=== PATIENT | female | born 1985 | race Caucasian/White ===

== ENCOUNTER → 2016-10-10 13:42 | Outpatient (CLI) | payer MEDICAID ==
[~2016-10-10 13:42] MED LIST: HYDROCODONE-APA1 TAB PO; NORCO 7.5/325 T1 TA1 PO
[2016-10-17 05:39] VITALS: BMI 35.0
== END | disposition home or self-care (01) ==
LOC: D.MRI 13:42
DX: M25.562 Pain in left knee (principal)

== ENCOUNTER 2016-10-13 19:45 | Emergency (ER) | payer MEDICAID ==
[2016-10-16] MEDS ORDERED: NORCO 7.5/325 T1 TA1 PO (10:44)
[2016-10-17 05:39] VITALS: BMI 35.0
== END 2016-10-13 21:29 | disposition home or self-care (01) ==
LOC: D.ER 19:45
DX: M25.562 Pain in left knee (principal); S83.282A Other tear of lateral meniscus, current injury, left knee, initial encounter; X58.XXXA Exposure to other specified factors, initial encounter; Y93.89 Activity, other specified; Y92.89 Other specified places as the place of occurrence of the external cause; F32.9 Major depressive disorder, single episode, unspecified; F17.200 Nicotine dependence, unspecified, uncomplicated

== ENCOUNTER 2016-10-17 05:00 | Day surgery (SDC) | payer MEDICAID ==
[2016-10-16 11:25] LABS: HEMATOCRIT 40.1 % (36.0-48.0); HEMOGLOBIN 13.2 g/dL (12-16); MCH 28.8 pg (26.0-34.0); MCHC 32.9 g/dL (31.0-37.0); MCV 87.6 fL (80.0-100.0); MEAN PLATELET VOLUME 11.8 fL (7.4-10.4); RBC 4.58 10x6/uL (4.00-5.40); RDW 13.4 % (11.5-14.5); WBC 9.1 10x3/uL (4.8-10.8)
[~2016-10-17] VITALS: Ht 154.9 cm; Wt 83.9 kg
[~2016-10-17 05:00] MED LIST changes: -HYDROCODONE-APA1 TAB PO
[2016-10-17 05:39] VITALS: BP 119/92; Ht 154.9 cm; Wt 83.9 kg
[2016-10-17] MEDS ORDERED: HYDROCODONE-APA1 TAB PO (07:35)
--- NOTE | 2016-10-17 09:25 | NUR ---
IV DC WITH CATHER TIP INTACT
--- NOTE | 2016-10-17 09:32 | NUR ---
CR[facility] TRAINING DONE WAITING ON NEW CRUTCHES
--- NOTE | 2016-10-24 12:19 | OP ---
PATIENT NAME: ANGELES BALLARD MEDICAL RECORD: [id number] :85 LOCATION:D.OPS ADMISSION DATE: SURGEON: KEIRA NÚÑEZ MD DATE OF OPERATION: 10/17/2016 PREOPERATIVE DIAGNOSIS: Left knee lateral meniscus tear. POSTOPERATIVE DIAGNOSES: Left knee chondromalacia grade I-II, specifically patellofemoral joint, no distinct meniscal tear noted. PROCEDURE PERFORMED: Chondroplasty and debridement. SURGEON: Zenon Núñez MD. ANESTHESIA: General. CONDITION: She tolerated the procedure well, was transferred to the recovery room in stable condition. INDICATIONS: This is a 31-year-old female, who has been seeing us in the clinic. She had been having a lateral pain. Her last MRI was consistent with a lateral meniscus tear and she was having pain in this area. We discussed options and elected to proceed with a knee arthroscopy. We discussed risks, benefits, and alternatives. She understood and wished to proceed. OPERATIVE REPORT: The patient was taken to the operating room and placed in supine position. General anesthesia was obtained. Left knee was confirmed to be the correct knee. It was prepped and draped in normal fashion. The portal sites were marked and injected with 0.25% Marcaine with epinephrine. I placed the scope in the anterolateral portal and the outflow superomedially. The knee was then inspected. The patellofemoral joint showed some chondromalacia, some changes on the backside of the patella, but this was not really grade I-II type changes coming down the medial gutter into the medial joint line. Overall, this looked very good. She had some extensive fat pad, which did establish an anterior medial portal under direct visualization and debride some of this from the anterior portion for better visualization. Probing and checking the medial meniscus, I could not find any tears going to the notch, her ACL and PCL were notably intact, flipping into a [id number] position and checked this area thoroughly. She did have some mild chondromalacia and this area was debrided, but I probed the entire lateral meniscus, I could not find any tears anywhere in it, it looked very clean. ____ some debridement with chondroplasty and brought the case to a close. She was injected with Duramorph and awakened and transferred to the recovery room in stable condition, having tolerated the procedure well. TRANSINT:[id number] Voice Confirmation ID: [id number] DOCUMENT ID: [id number] OPERATIVE REPORT [id number] ANGELES BALLARD, KEIRA ALSTON MD at 1219 CC: [id number] DICTATION DATE: 10/17/16 0848 SLOT FLOORMAN: 10/17/[address] [facility] 10/17/16 [place] [id number]
== END 2016-10-17 09:40 | disposition home or self-care (01) ==
LOC: D.OPS 05:00 → D.PAN 07:00 → D.OPS 07:00 → D.PAN 11:00 → D.OPS 11:45 → D.PAN 11:45
PROVIDERS: Anesthesiology
DX: M22.42 Chondromalacia patellae, left knee (principal)

== ENCOUNTER 2016-10-24 22:20 | Emergency (ER) | payer MEDICAID ==
[2016-10-17 05:39] VITALS: BMI 35.0
[~2016-10-24 22:20] MED LIST changes: +HYDROCODONE-APA1 TAB PO
== END 2016-10-25 00:51 | disposition home or self-care (01) ==
LOC: D.ER 22:20
DX: G89.18 Other acute postprocedural pain (principal); M25.562 Pain in left knee; F32.9 Major depressive disorder, single episode, unspecified; F17.200 Nicotine dependence, unspecified, uncomplicated

== ENCOUNTER 2016-12-11 21:41 | Emergency (ER) | payer MEDICAID ==
[2016-10-17 05:39] VITALS: BMI 35.0
== END 2016-12-12 01:00 | disposition home or self-care (01) ==
LOC: D.ER 21:41
DX: S80.02XA Contusion of left knee, initial encounter (principal); W01.0XXA Fall on same level from slipping, tripping and stumbling without subsequent striking against object, initial encounter; Y93.89 Activity, other specified; Y92.89 Other specified places as the place of occurrence of the external cause; F32.9 Major depressive disorder, single episode, unspecified; F17.200 Nicotine dependence, unspecified, uncomplicated

== ENCOUNTER 2016-12-17 21:01 | Emergency (ER) | payer MEDICAID ==
[2016-10-17 05:39] VITALS: BMI 35.0
== END 2016-12-17 22:28 | disposition home or self-care (01) ==
LOC: D.ER 21:01
DX: S61.412A Laceration without foreign body of left hand, initial encounter (principal); W26.0XXA Contact with knife, initial encounter; Y93.89 Activity, other specified; Y92.89 Other specified places as the place of occurrence of the external cause; S69.92XA Unspecified injury of left wrist, hand and finger(s), initial encounter; F32.9 Major depressive disorder, single episode, unspecified; F17.200 Nicotine dependence, unspecified, uncomplicated

== ENCOUNTER 2016-12-18 12:49 | Emergency (ER) | payer MEDICAID ==
[2016-10-17 05:39] VITALS: BMI 35.0
== END 2016-12-18 20:45 | disposition home or self-care (01) ==
LOC: D.ER 12:49
DX: S61.412D Laceration without foreign body of left hand, subsequent encounter (principal); X58.XXXD Exposure to other specified factors, subsequent encounter; Y92.89 Other specified places as the place of occurrence of the external cause; F32.9 Major depressive disorder, single episode, unspecified

== ENCOUNTER 2017-04-04 20:09 | Emergency (ER) | payer MEDICAID ==
[2016-10-17 05:39] VITALS: BMI 35.0
== END 2017-04-04 22:15 | disposition home or self-care (01) ==
LOC: D.ER 20:09
DX: S60.222A Contusion of left hand, initial encounter (principal); W10.9XXA Fall (on) (from) unspecified stairs and steps, initial encounter; S93.401A Sprain of unspecified ligament of right ankle, initial encounter; S80.212A Abrasion, left knee, initial encounter; F17.200 Nicotine dependence, unspecified, uncomplicated

== ENCOUNTER 2017-05-19 16:02 | Emergency (ER) | payer MEDICAID ==
[2016-10-17 05:39] VITALS: BMI 35.0
[2017-05-19 16:50] LABS: APPEARANCE CLOUDY (CLEAR); BILIRUBIN NEGATIVE (NEGATIVE); COLOR YELLOW (YELLOW); GLUCOSE NEGATIVE (NEGATIVE); KETONE NEGATIVE (NEGATIVE); LEUKOCYTE ESTERASE 1+ (NEGATIVE); NITRITE NEGATIVE (NEGATIVE); PROTEIN NEGATIVE (NEGATIVE); SPECIFIC GRAVITY 1.025 (1.005-1.020); UROBILINOGEN NORMAL (NORMAL)
[2017-05-19 16:53] LABS: BACTERIA FEW /hpf (NONE SEEN)
== END 2017-05-19 18:36 | disposition home or self-care (01) ==
LOC: D.ER 16:02
PROVIDERS: Emergency Medicine
DX: N39.0 Urinary tract infection, site not specified (principal); F17.200 Nicotine dependence, unspecified, uncomplicated

== ENCOUNTER 2017-06-24 17:03 | Emergency (ER) | payer MEDICAID ==
[2016-10-17 05:39] VITALS: BMI 35.0
== END 2017-06-24 18:18 | disposition home or self-care (01) ==
LOC: D.ER 17:03
DX: R07.89 Other chest pain (principal); S69.92XA Unspecified injury of left wrist, hand and finger(s), initial encounter; V43.62XA Car passenger injured in collision with other type car in traffic accident, initial encounter; Y93.89 Activity, other specified; Y92.410 Unspecified street and highway as the place of occurrence of the external cause; S70.311A Abrasion, right thigh, initial encounter; F17.200 Nicotine dependence, unspecified, uncomplicated

== ENCOUNTER 2017-06-27 19:07 | Emergency (ER) | payer MEDICAID ==
[2016-10-17 05:39] VITALS: BMI 35.0
== END 2017-06-27 21:08 | disposition home or self-care (01) ==
LOC: D.ER 19:07
DX: L02.412 Cutaneous abscess of left axilla (principal); F17.200 Nicotine dependence, unspecified, uncomplicated

== ENCOUNTER 2017-07-01 20:07 | Emergency (ER) | payer MEDICAID ==
[2016-10-17 05:39] VITALS: BMI 35.0
== END 2017-07-01 23:10 | disposition home or self-care (01) ==
LOC: D.ER 20:07
DX: L02.412 Cutaneous abscess of left axilla (principal)

== ENCOUNTER 2017-09-01 18:35 | Emergency (ER) | payer MEDICAID ==
[2016-10-17 05:39] VITALS: BMI 35.0
[2017-09-01 19:15] LABS: HCG URINE NEGATIVE (NEGATIVE)
[2017-09-01 19:21] LABS: APPEARANCE CLOUDY (CLEAR); BILIRUBIN NEGATIVE (NEGATIVE); GLUCOSE NEGATIVE (NEGATIVE); KETONE NEGATIVE (NEGATIVE); NITRITE NEGATIVE (NEGATIVE); PROTEIN TRACE mg/dL (NEGATIVE); SPECIFIC GRAVITY 1.015 (1.005-1.020); UROBILINOGEN NORMAL (NORMAL)
[2017-09-01 19:22] LABS: BACTERIA MODERATE /hpf (NONE SEEN); MUCUS <1+ /lpf (NONE SEEN); RED CELLS - URINE >50 /hpf (0-5); WHITE CELLS - URINE 25-50 /hpf (0-5)
[2017-09-01 20:58] LABS: BASOPHILS 0.2 % (0-2); EOSINOPHILS 1.9 % (0-7); HEMATOCRIT 43.1 % (36.0-48.0); HEMOGLOBIN 14.3 g/dL (12-16); IMMATURE GRANULOCYTES 0.3 % (0-5); LYMPHOCYTES 31.6 % (15-50); MCH 29.7 pg (26.0-34.0); MCHC 33.2 g/dL (31.0-37.0); MCV 89.4 fL (80.0-100.0); MEAN PLATELET VOLUME 11.9 fL (7.4-10.4); PLATELET COUNT 239 10x3/uL (130-400); RBC 4.82 10x6/uL (4.00-5.40); RDW 13.9 % (11.5-14.5); WBC 11.9 10x3/uL (4.8-10.8)
[2017-09-01 21:10] LABS: ALBUMIN 3.7 g/dL (3.4-5.0); ALKALINE PHOSPHATASE 66 U/L (46-116); ALT (SGPT) 18 U/L (10-68); CALC OSMOLALITY 273 mosm/kg (275-300); CALCIUM 9.3 mg/dL (8.5-10.1); CARBON DIOXIDE 28.5 mmol/L (21.0-32.0); CHLORIDE - SERUM 102 mmol/L (98-107); CREATININE - SERUM 0.8 mg/dL (0.6-1.3); GLUCOSE 94 mg/dL (74-106); POTASSIUM - SERUM 3.9 mmol/L (3.5-5.1); PROTEIN - SERUM 7.3 g/dL (6.4-8.2); SODIUM 138 mmol/L (136-145); UREA NITROGEN 6 mg/dL (7-18); eGFR NON AFRICAN AMERICAN 88 mL/min (90-120)
== END 2017-09-01 22:50 | disposition home or self-care (01) ==
LOC: D.ER 18:35
PROVIDERS: Emergency Medicine; Physician Assistant Medical
DX: N39.0 Urinary tract infection, site not specified (principal); N23 Unspecified renal colic; F17.200 Nicotine dependence, unspecified, uncomplicated

== ENCOUNTER 2017-09-29 23:07 | Emergency (ER) | payer MEDICAID ==
[2016-10-17 05:39] VITALS: BMI 35.0
[2017-09-29 23:38] LABS: APPEARANCE HAZY (CLEAR); BILIRUBIN NEGATIVE (NEGATIVE); COLOR PINK (YELLOW); GLUCOSE NEGATIVE (NEGATIVE); KETONE NEGATIVE (NEGATIVE); NITRITE NEGATIVE (NEGATIVE); PROTEIN NEGATIVE (NEGATIVE); UROBILINOGEN NORMAL (NORMAL)
[2017-09-29 23:39] LABS: BACTERIA NONE SEEN /hpf (NONE SEEN); RED CELLS - URINE >50 /hpf (0-5); WHITE CELLS - URINE RARE /hpf (0-5)
== END 2017-09-30 01:55 | disposition home or self-care (01) ==
LOC: D.ER 23:07
PROVIDERS: Emergency Medicine
DX: M54.5 Low back pain (principal); R31.9 Hematuria, unspecified; F17.200 Nicotine dependence, unspecified, uncomplicated

== ENCOUNTER 2017-10-03 19:30 | Emergency (ER) | payer MEDICAID ==
[2016-10-17 05:39] VITALS: BMI 35.0
[2017-10-03 20:49] LABS: APPEARANCE HAZY (CLEAR); BILIRUBIN NEGATIVE (NEGATIVE); COLOR RED (YELLOW); GLUCOSE 100 mg/dL (NEGATIVE); KETONE NEGATIVE (NEGATIVE); NITRITE NEGATIVE (NEGATIVE); PROTEIN NEGATIVE (NEGATIVE); UROBILINOGEN NORMAL (NORMAL)
[2017-10-03 20:53] LABS: RED CELLS - URINE >50 /hpf (0-5)
[2017-10-03 20:54] LABS: BACTERIA MODERATE /hpf (NONE SEEN); EPITHELIAL CELLS 0-5 /hpf (0-5)
[2017-10-04 00:30] LABS: HEMOGLOBIN 12.9 g/dL (12-16); LYMPHOCYTES 34.9 % (15-50); MCH 29.3 pg (26.0-34.0); MCHC 33.9 g/dL (31.0-37.0); MCV 86.4 fL (80.0-100.0); MEAN PLATELET VOLUME 10.9 fL (7.4-10.4); NEUTROPHILS 59.2 % (40-80); PLATELET COUNT 215 10x3/uL (130-400); WBC 9.1 10x3/uL (4.8-10.8)
[2017-10-04 00:44] LABS: ALBUMIN 3.7 g/dL (3.4-5.0); ALT (SGPT) 17 U/L (10-68); AMYLASE - SERUM 44 U/L (25-115); CALC OSMOLALITY 274 mosm/kg (275-300); CALCIUM 8.9 mg/dL (8.5-10.1); CARBON DIOXIDE 28.9 mmol/L (21.0-32.0); CHLORIDE - SERUM 102 mmol/L (98-107); CREATININE - SERUM 0.8 mg/dL (0.6-1.3); GLUCOSE 71 mg/dL (74-106); LIPASE 125 U/L (73-393); POTASSIUM - SERUM 3.1 mmol/L (3.5-5.1); PROTEIN - SERUM 7.2 g/dL (6.4-8.2); SODIUM 140 mmol/L (136-145); UREA NITROGEN 7 mg/dL (7-18); eGFR NON AFRICAN AMERICAN 88 mL/min (90-120)
[2017-10-04 00:45] LABS: ALKALINE PHOSPHATASE 59 U/L (46-116)
== END 2017-10-04 02:14 | disposition home or self-care (01) ==
LOC: D.ER 19:30
PROVIDERS: Family Medicine
DX: R10.9 Unspecified abdominal pain (principal); R31.9 Hematuria, unspecified; N39.0 Urinary tract infection, site not specified; F17.200 Nicotine dependence, unspecified, uncomplicated

== ENCOUNTER 2017-10-06 16:14 | Emergency (ER) | payer MEDICAID ==
[2016-10-17 05:39] VITALS: BMI 35.0
[2017-10-06 17:18] LABS: BASOPHILS 0.1 % (0-2); EOSINOPHILS 2.1 % (0-7); HEMATOCRIT 43.8 % (36.0-48.0); HEMOGLOBIN 14.7 g/dL (12-16); IMMATURE GRANULOCYTES 0.2 % (0-5); LYMPHOCYTES 26.1 % (15-50); MCH 29.8 pg (26.0-34.0); MCHC 33.6 g/dL (31.0-37.0); MCV 88.7 fL (80.0-100.0); MEAN PLATELET VOLUME 11.7 fL (7.4-10.4); MONOCYTES 5.6 % (2-11); NEUTROPHILS 65.9 % (40-80); RBC 4.94 10x6/uL (4.00-5.40); RDW 14.5 % (11.5-14.5); WBC 11.1 10x3/uL (4.8-10.8)
[2017-10-06 17:21] LABS: HCG SERUM NEGATIVE (NEGATIVE)
[2017-10-06 17:24] LABS: ALKALINE PHOSPHATASE 62 U/L (46-116); ALT (SGPT) 19 U/L (10-68); BILIRUBIN - TOTAL 0.15 mg/dL (0.2-1.3); CALC OSMOLALITY 275 mosm/kg (275-300); CALCIUM 9.8 mg/dL (8.5-10.1); CARBON DIOXIDE 25.6 mmol/L (21.0-32.0); CHLORIDE - SERUM 105 mmol/L (98-107); CREATININE - SERUM 0.8 mg/dL (0.6-1.3); GLUCOSE 89 mg/dL (74-106); POTASSIUM - SERUM 4.1 mmol/L (3.5-5.1); PROTEIN - SERUM 8.1 g/dL (6.4-8.2); SODIUM 140 mmol/L (136-145); UREA NITROGEN 7 mg/dL (7-18); eGFR NON AFRICAN AMERICAN 88 mL/min (90-120)
[2017-10-06 17:31] LABS: PLATELET COUNT 271 10x3/uL (130-400)
[2017-10-06 17:58] LABS: APPEARANCE CLEAR (CLEAR); COLOR PINK (YELLOW); NITRITE NEGATIVE (NEGATIVE); PROTEIN TRACE mg/dL (NEGATIVE); SPECIFIC GRAVITY 1.005 (1.005-1.020)
[2017-10-06 17:59] LABS: BILIRUBIN NEGATIVE (NEGATIVE); GLUCOSE NEGATIVE (NEGATIVE); KETONE NEGATIVE (NEGATIVE); UROBILINOGEN NORMAL (NORMAL)
[2017-10-06 18:02] LABS: BACTERIA FEW /hpf (NONE SEEN)
[2017-10-06 18:04] LABS: EPITHELIAL CELLS 0-5 /hpf (0-5); WHITE CELLS - URINE 0-5 /hpf (0-5)
== END 2017-10-06 18:29 | disposition home or self-care (01) ==
LOC: D.ER 16:14
PROVIDERS: Emergency Medicine
DX: R31.9 Hematuria, unspecified (principal); F17.200 Nicotine dependence, unspecified, uncomplicated

== ENCOUNTER 2017-10-21 20:24 | Emergency (ER) | payer MEDICAID ==
[2016-10-17 05:39] VITALS: BMI 35.0
[2017-10-21 20:54] LABS: APPEARANCE CLEAR (CLEAR); BILIRUBIN NEGATIVE (NEGATIVE); COLOR YELLOW (YELLOW); GLUCOSE NEGATIVE (NEGATIVE); KETONE SMALL mg/dL (NEGATIVE); NITRITE NEGATIVE (NEGATIVE); PROTEIN NEGATIVE (NEGATIVE); UROBILINOGEN NORMAL (NORMAL)
[2017-10-21 21:03] LABS: BASOPHILS 0.1 % (0-2); EOSINOPHILS 0.3 % (0-7); HEMATOCRIT 41.3 % (36.0-48.0); HEMOGLOBIN 14.3 g/dL (12-16); IMMATURE GRANULOCYTES 0.3 % (0-5); LYMPHOCYTES 28.5 % (15-50); MCH 30.1 pg (26.0-34.0); MCHC 34.6 g/dL (31.0-37.0); MCV 86.9 fL (80.0-100.0); NEUTROPHILS 65.8 % (40-80); PLATELET COUNT 272 10x3/uL (130-400); RBC 4.75 10x6/uL (4.00-5.40); RDW 14.1 % (11.5-14.5); WBC 11.4 10x3/uL (4.8-10.8)
[2017-10-21 21:15] LABS: HCG SERUM NEGATIVE (NEGATIVE)
[2017-10-21 21:17] LABS: ALBUMIN 4.4 g/dL (3.4-5.0); BILIRUBIN - TOTAL 0.46 mg/dL (0.2-1.3); CALCIUM 9.9 mg/dL (8.5-10.1); CARBON DIOXIDE 25.8 mmol/L (21.0-32.0); PROTEIN - SERUM 8.6 g/dL (6.4-8.2)
[2017-10-21 21:19] LABS: POTASSIUM - SERUM 2.8 mmol/L (3.5-5.1)
[2017-10-31] MEDS ORDERED: TYLENOL #4 W/CO1 TAB PO (13:04)
[2017-10-31] MEDS ORDERED: TRAZODONE HCL50 MG PO (13:04)
== END 2017-10-22 00:06 | disposition home or self-care (01) ==
LOC: D.ER 20:24
PROVIDERS: Family Medicine
DX: G89.18 Other acute postprocedural pain (principal); R10.31 Right lower quadrant pain; M62.838 Other muscle spasm; E87.6 Hypokalemia

== ENCOUNTER → 2017-10-23 19:17 | Outpatient (CLI) | payer MEDICAID ==
[2016-10-17 05:39] VITALS: BMI 35.0
[~2017-10-23 19:17] MED LIST changes: +TRAZODONE HCL50 MG PO; +TYLENOL #4 W/CO1 TAB PO
== END | disposition home or self-care (01) ==
LOC: D.LABREF 19:17
DX: R31.9 Hematuria, unspecified (principal)

== ENCOUNTER 2017-11-01 06:35 | Day surgery (SDC) | payer MEDICAID ==
[~2017-11-01] VITALS: Ht 154.9 cm; Wt 81.2 kg
--- NOTE | ~2017-11-01 | OP ---
PATIENT NAME: ANGELES BALLARD MEDICAL RECORD: [id number] :85 LOCATION:D.OPS ADMISSION DATE: SURGEON: ROSS RENE MD DATE OF OPERATION: 11/01/2017 SURGEON: Ross Rene MD ANESTHESIA: MAC by Shane Sheppard CRNA. PROCEDURES: Cystoscopy, intravesical Rimso instillation. PREOPERATIVE DIAGNOSES: Gross hematuria and interstitial cystitis. FINDINGS: Diffuse bladder inflammation. No bladder tumors. Single right ureteral orifice. Duplicated left ureteral orifice. BLOOD LOSS: None. CLINICAL HISTORY: This is a 32-year-old female smoker, who had gross hematuria for some time. She had a CT scan of the abdomen and pelvis, which showed no renal masses and no stones and no hydronephrosis. She also has complaints of urinary frequency with urge incontinence, nocturia times 4-5, abdominal and suprapubic pain as well as dyspareunia. The symptoms are highly suggestive of interstitial cystitis. She comes today for cystoscopy and if bladder inflammation is seen without any bladder tumors, then we will treat her with intravesical Rimso. She is not allergic to any medications. She was given ampicillin-sulbactam 3 grams IV investigation division lieutenant to the OR. DESCRIPTION OF PROCEDURE: The patient was given IV sedation. She was placed in the dorsal lithotomy position and prepped and draped. A 21-[place] cystoscope with 30-degree lens was used for visualization. Findings are as outlined above. The bladder was then emptied through the scope and the scope was removed. A 16-[place] catheter was inserted into the bladder and through the catheter, 50 mL of Rimso-50 solution was instilled into the bladder. The medication was left in the bladder and the catheter was removed. The patient will hold the medication in for at least 15 minutes and then void it out. She will come next week to the office to have the second treatment given to her. TRANSINT:[id number] Voice Confirmation ID: [id number] DOCUMENT ID: [id number] ROSS RENE MD at 1238 CC: [id number] DICTATION DATE: 11/01/17 1022 GRAIN ORIGINATION SPECIALIST: 11/01/17 1048 [place] [address]
[2017-11-01 07:45] VITALS: Ht 154.9 cm; Wt 81.2 kg
[2017-11-01 08:03] LABS: HCG URINE NEGATIVE (NEGATIVE)
[2017-11-01 08:06] LABS: HEMATOCRIT 38.8 % (36.0-48.0); HEMOGLOBIN 13.2 g/dL (12-16); MCH 29.8 pg (26.0-34.0); MCV 87.6 fL (80.0-100.0); MEAN PLATELET VOLUME 11.6 fL (7.4-10.4); RBC 4.43 10x6/uL (4.00-5.40); RDW 14.1 % (11.5-14.5); WBC 13.1 10x3/uL (4.8-10.8)
== END 2017-11-01 11:10 | disposition home or self-care (01) ==
LOC: D.OPS 06:35 → D.PAN 10:45 → D.OPS 11:10
PROVIDERS: Anesthesiology; Urology
DX: R31.0 Gross hematuria (principal); N30.11 Interstitial cystitis (chronic) with hematuria; F17.200 Nicotine dependence, unspecified, uncomplicated; Z01.812 Encounter for preprocedural laboratory examination

== ENCOUNTER 2017-11-05 06:35 | Day surgery (SDC) | payer MEDICAID ==
[2017-11-02 14:08] LABS: BASOPHILS 0.2 % (0-2); EOSINOPHILS 1.1 % (0-7); HEMATOCRIT 40.8 % (36.0-48.0); HEMOGLOBIN 13.9 g/dL (12-16); IMMATURE GRANULOCYTES 0.2 % (0-5); MCHC 34.1 g/dL (31.0-37.0); MCV 88.1 fL (80.0-100.0); MEAN PLATELET VOLUME 11.6 fL (7.4-10.4); MONOCYTES 4.5 % (2-11); PLATELET COUNT 261 10x3/uL (130-400); RBC 4.63 10x6/uL (4.00-5.40); RDW 14.4 % (11.5-14.5); WBC 12.3 10x3/uL (4.8-10.8)
[~2017-11-05] VITALS: Ht 154.9 cm; Wt 61.2 kg
--- NOTE | ~2017-11-05 | OP ---
PATIENT NAME: ANGELES BALLARD MEDICAL RECORD: [id number] :85 LOCATION:D.OPS ADMISSION DATE: SURGEON: HOLLI DIAZ MD DATE OF OPERATION: 11/05/2017 PREOPERATIVE DIAGNOSES: 1. Pelvic pain. 2. Irregular periods. 3. Pelvic mass. POSTOPERATIVE DIAGNOSES: 1. Pelvic pain. 2. Irregular periods. 3. Pelvic mass. PROCEDURES: 1. Diagnostic laparoscopy. 2. Right cystectomy. 3. Dilation and curettage with hysteroscopy. SURGEON: Holli Diaz MD ANESTHESIOLOGIST: Dr. Ennis. ANESTHESIA: General. FINDINGS: A 3-cm right hemorrhagic cyst is encountered. Pelvis is otherwise unremarkable. At the time of hysteroscopy, no abnormal findings were encountered. There was scant tissue returned at the time of endometrial curettings. SPECIMEN REMOVED: Endometrial curettings. SPECIMEN DISPOSITION: Pathology. ESTIMATED BLOOD LOSS: Less than or equal to 50 mL. FLUIDS: 900 mL of lactated Ringer's. URINE OUTPUT: Quantity sufficient void prior to procedure. COMPLICATIONS: None. DRAINS: None. INDICATIONS: The patient is a 32-year-old female with irregular periods and pelvic pain. Ultrasound demonstrates a hyperechoic focus in the uterus. Otherwise, it is unremarkable with the exception of a cyst of the right ovary. The patient is consented for diagnostic laparoscopy for chronic pelvic pain, failing conservative therapy, and abnormal ultrasound finding. DESCRIPTION OF THE PROCEDURE: After informed consent was assured, the patient was taken to the operating room where anesthetic was obtained without difficulty. She was placed in Deejay stirrups and prepped and draped in usual sterile fashion. Incision was made at the umbilicus to accommodate a 5-mm OPERATIVE REPORT [id number] ANGELES BALLARD trocar. Pneumoperitoneum was developed. Accessory trocars were now placed and the cyst on the right side identified. Using monopolar device, the cyst is open and contents removed. A hemorrhagic cyst is encountered. Once the pelvis has been irrigated and irrigant removed, inspection of the cystotomy site revealed adequate hemostasis. The pneumoperitoneum was released as the accessory trocars were removed. Then, the primary trocars were removed and then all sites were closed. The legs were positioned for the hysteroscopy. The cervix is dilated to accommodate a hysteroscope, which was inserted under direct visualization. The inspection of the cavity is unremarkable. The cervix is now further dilated to accommodate a #2 curette. Curettage was performed until good cry was obtained throughout. The curettings were sent to pathology. Sponge, lap, and needle counts correct times 2. The patient was awakened and taken to recovery room in stable condition. TRANSINT:[id number] Voice Confirmation ID: [id number] DOCUMENT ID: [id number] 12/24/2017 Edited to correct date of service and account number, dmm. HOLLI DIAZ MD at 1728 CC: [id number] DICTATION DATE: 12/21/17 1152 SUBACUTE NURSE: 12/21/17 1218 [facility] 11/05/17 [place] [id number] [place] [address]
[2017-11-05 06:02] VITALS: BP 135/82; Ht 154.9 cm; Wt 61.2 kg
[2017-11-05 06:06] LABS: HCG URINE NEGATIVE (NEGATIVE)
== END 2017-11-05 11:20 | disposition home or self-care (01) ==
LOC: D.OPS 06:35 → D.PAN 07:30 → D.OPS 11:20
PROVIDERS: Obstetrics & Gynecology
DX: R19.00 Intra-abdominal and pelvic swelling, mass and lump, unspecified site (principal); N92.6 Irregular menstruation, unspecified; R10.2 Pelvic and perineal pain; F17.200 Nicotine dependence, unspecified, uncomplicated; E66.9 Obesity, unspecified; Z01.812 Encounter for preprocedural laboratory examination

== ENCOUNTER 2017-11-06 21:52 | Emergency (ER) | payer MEDICAID ==
[2017-11-05 06:02] VITALS: BMI 25.5
[2017-11-07 00:58] LABS: BASOPHILS 0.3 % (0-2); HEMATOCRIT 38.6 % (36.0-48.0); HEMOGLOBIN 12.7 g/dL (12-16); IMMATURE GRANULOCYTES 0.3 % (0-5); LYMPHOCYTES 42.8 % (15-50); MCH 29.2 pg (26.0-34.0); MCHC 32.9 g/dL (31.0-37.0); MCV 88.7 fL (80.0-100.0); MEAN PLATELET VOLUME 11.5 fL (7.4-10.4); NEUTROPHILS 51.6 % (40-80); PLATELET COUNT 253 10x3/uL (130-400); RBC 4.35 10x6/uL (4.00-5.40); RDW 14.4 % (11.5-14.5); WBC 11.1 10x3/uL (4.8-10.8)
[2017-11-07 01:13] LABS: APPEARANCE CLEAR (CLEAR); BILIRUBIN NEGATIVE (NEGATIVE); COLOR YELLOW (YELLOW); GLUCOSE NEGATIVE (NEGATIVE); KETONE NEGATIVE (NEGATIVE); NITRITE NEGATIVE (NEGATIVE); PROTEIN NEGATIVE (NEGATIVE); SPECIFIC GRAVITY 1.015 (1.005-1.020); UROBILINOGEN NORMAL (NORMAL)
[2017-11-07 01:14] LABS: BACTERIA FEW /hpf (NONE SEEN); EPITHELIAL CELLS 0-5 /hpf (0-5); RED CELLS - URINE 0-5 /hpf (0-5); WHITE CELLS - URINE 0-5 /hpf (0-5)
[2017-11-07 01:15] LABS: ALBUMIN 3.4 g/dL (3.4-5.0); ALKALINE PHOSPHATASE 48 U/L (46-116); ALT (SGPT) 19 U/L (10-68); CALC OSMOLALITY 275 mosm/kg (275-300); CALCIUM 8.4 mg/dL (8.5-10.1); CARBON DIOXIDE 25.5 mmol/L (21.0-32.0); CHLORIDE - SERUM 103 mmol/L (98-107); CREATININE - SERUM 0.7 mg/dL (0.6-1.3); GLUCOSE 87 mg/dL (74-106); POTASSIUM - SERUM 3.3 mmol/L (3.5-5.1); SODIUM 140 mmol/L (136-145); UREA NITROGEN 7 mg/dL (7-18); eGFR NON AFRICAN AMERICAN > 90 mL/min (90-120)
== END 2017-11-07 03:26 | disposition home or self-care (01) ==
LOC: D.ER 21:52
PROVIDERS: Nurse Practitioner Family
DX: G89.18 Other acute postprocedural pain (principal); R10.9 Unspecified abdominal pain

== ENCOUNTER 2017-12-03 20:14 | Emergency (ER) | payer MEDICAID ==
[2017-11-05 06:02] VITALS: BMI 25.5
== END 2017-12-03 22:55 | disposition home or self-care (01) ==
LOC: D.ER 20:14
DX: K04.7 Periapical abscess without sinus (principal); K08.89 Other specified disorders of teeth and supporting structures; F17.200 Nicotine dependence, unspecified, uncomplicated

== ENCOUNTER 2018-01-15 19:58 | Emergency (ER) | payer MEDICAID ==
[2017-11-05 06:02] VITALS: BMI 25.5
== END 2018-01-15 22:13 | disposition home or self-care (01) ==
LOC: D.ER 19:58
DX: T21.02XA Burn of unspecified degree of abdominal wall, initial encounter (principal); X18.XXXA Contact with other hot metals, initial encounter; Y93.89 Activity, other specified; Y92.019 Unspecified place in single-family (private) house as the place of occurrence of the external cause; F17.200 Nicotine dependence, unspecified, uncomplicated

== ENCOUNTER 2018-12-04 09:54 | Emergency (ER) | payer MEDICAID ==
[~2018-12-04] VITALS: Ht 154.9 cm; Wt 59.1 kg
[2018-12-04 10:26] VITALS: Ht 154.9 cm; Wt 59.1 kg
[2018-12-04] MEDS ORDERED: ULTRAM50 MG PO (11:36)
[2018-12-04 11:43] VITALS: BP 111/72
== END 2018-12-04 11:44 | disposition home or self-care (01) ==
LOC: D.ER 09:54
DX: L03.113 Cellulitis of right upper limb (principal); S61.411A Laceration without foreign body of right hand, initial encounter; Y04.2XXA Assault by strike against or bumped into by another person, initial encounter; Y93.89 Activity, other specified; Y92.89 Other specified places as the place of occurrence of the external cause; F17.200 Nicotine dependence, unspecified, uncomplicated